=== PATIENT | female | born 1960 | race Two or more races ===

== ENCOUNTER 2017-01-11 11:34 | Day surgery (SDC) | END 2017-01-11 16:56 | disposition home or self-care (01) | DX: Z12.11 Encounter for screening for malignant neoplasm of colon (principal); K21.0 Gastro-esophageal reflux disease with esophagitis; D12.5 Benign neoplasm of sigmoid colon; K29.60 Other gastritis without bleeding; K64.8 Other hemorrhoids; E03.9 Hypothyroidism, unspecified; E78.5 Hyperlipidemia, unspecified | CPT/HCPCS: 43239; 45380; 88305; 88313; Z7610 ==